=== PATIENT | female | born 1970 | race Caucasian/White ===

== ENCOUNTER 2019-03-09 10:07 | Emergency (ER) | payer BC, OTHER ==
[~2019-03-09] VITALS: Ht 162.6 cm; Wt 70.3 kg
[~2019-03-09 10:07] MED LIST: CLIN1CAP3; CLIN1CAP4 PO; IBUP800T24 PO; PRED-188 PO; TRAM-297 PO
[2019-03-09 10:18] VITALS: BP 167/105
[2019-03-09] MEDS ORDERED: ACETAMINOPHEN 500 MG TAB PO ONE (10:30)
[2019-03-09] MEDS ORDERED: ALPRAZolam 0.5 MG TAB PO ONE (10:30)
[2019-03-09] MEDS ORDERED: NEOMYCIN-BACITRACIN-POLYM UNITDOSE PKG TOP OINT TOP ONE (11:15)
[2019-03-09] MEDS ORDERED: NEOMYCIN-BACITRACIN-POLYM 15GM TOP OINT TOP SCH (22:00)
== END 2019-03-09 11:22 | disposition home or self-care (01) ==
LOC: ER 10:07
DX: S09.90XA Unspecified injury of head, initial encounter (principal); Z90.710 Acquired absence of both cervix and uterus; Z90.89 Acquired absence of other organs; Z88.6 Allergy status to analgesic agent; Z88.0 Allergy status to penicillin; Z88.1 Allergy status to other antibiotic agents; W19.XXXA Unspecified fall, initial encounter; Y93.89 Activity, other specified; Y99.8 Other external cause status; Y92.89 Other specified places as the place of occurrence of the external cause
CPT/HCPCS: 70450